=== PATIENT | female | born 1995 | race Caucasian/White ===

== ENCOUNTER 2017-10-05 20:07 | Emergency (ER) | payer OTHER ==
[~2017-10-05] VITALS: Ht 157.5 cm; Wt 79.5 kg
[~2017-10-05 20:07] MED LIST: MUSCLE RELAXER PO; NORCO 325 MG-7.1 TAB PO
[2017-10-05 20:10] VITALS: BP 128/87; PULSE 96; TEMP 97.9
== END 2017-10-05 22:19 | disposition home or self-care (01) ==
LOC: COL.ER 20:07
DX: G43.909 Migraine, unspecified, not intractable, without status migrainosus (principal)
CPT/HCPCS: J1885; J2550

== ENCOUNTER 2018-01-04 03:30 | Emergency (ER) | payer OTHER ==
[~2018-01-04] VITALS: Ht 157.5 cm; Wt 77.3 kg
[2018-01-04 03:32] VITALS: TEMP 98.1
[2018-01-04 04:52] VITALS: BP 112/69; PULSE 79
== END 2018-01-04 05:07 | disposition home or self-care (01) ==
LOC: COL.ER 03:30
DX: G43.909 Migraine, unspecified, not intractable, without status migrainosus (principal)
CPT/HCPCS: J1885; J2550; J7030

== ENCOUNTER 2018-01-27 20:14 | Emergency (ER) | payer OTHER ==
[~2018-01-27] VITALS: Ht 157.5 cm; Wt 78.2 kg
[2018-01-27 20:17] VITALS: TEMP 97.8
[2018-01-27 22:12] VITALS: BP 120/81; PULSE 65
== END 2018-01-27 22:14 | disposition home or self-care (01) ==
LOC: COL.ER 20:14
DX: G43.909 Migraine, unspecified, not intractable, without status migrainosus (principal)
CPT/HCPCS: J1200; J1885; J2765; J7030

== ENCOUNTER 2018-10-04 08:43 | Emergency (ER) | payer OTHER ==
[~2018-10-04] VITALS: Ht 157.5 cm; Wt 78.0 kg
[2018-10-04 08:46] VITALS: BP 140/73; TEMP 98.5
[2018-10-04] MEDS ORDERED: FIORINAL 325 MG1 CAP PO (09:44)
[2018-10-04] MEDS ORDERED: ZOFRAN 4MG T4 MG/TAB PO (09:44)
[2018-10-04 10:00] VITALS: PULSE 93
== END 2018-10-04 10:00 | disposition home or self-care (01) ==
LOC: COL.ER 08:43
DX: G43.909 Migraine, unspecified, not intractable, without status migrainosus (principal); F17.210 Nicotine dependence, cigarettes, uncomplicated
CPT/HCPCS: J1885; J2550

== ENCOUNTER 2018-10-19 17:12 | Emergency (ER) | payer OTHER ==
[~2018-10-19] VITALS: Ht 157.5 cm; Wt 78.0 kg
[~2018-10-19 17:12] MED LIST changes: +FIORINAL 325 MG1 CAP PO; +ZOFRAN 4MG T4 MG/TAB PO
[2018-10-19 17:18] VITALS: TEMP 97.9
[2018-10-19 20:09] VITALS: BP 96/78; PULSE 72
== END 2018-10-19 20:10 | disposition home or self-care (01) ==
LOC: COL.ER 17:12
DX: G43.909 Migraine, unspecified, not intractable, without status migrainosus (principal); F17.210 Nicotine dependence, cigarettes, uncomplicated
CPT/HCPCS: J1200; J1885; J2550; J2765; J7030

== ENCOUNTER 2018-11-19 08:22 | Emergency (ER) | payer OTHER ==
[~2018-11-19] VITALS: Ht 157.5 cm; Wt 80.0 kg
[2018-11-19 08:31] VITALS: TEMP 97.6
[2018-11-19 10:25] VITALS: BP 106/78; PULSE 77
== END 2018-11-19 10:25 | disposition home or self-care (01) ==
LOC: COL.ER 08:22
DX: G43.909 Migraine, unspecified, not intractable, without status migrainosus (principal); F17.210 Nicotine dependence, cigarettes, uncomplicated
CPT/HCPCS: J1200; J1885; J2550; J2765; J7030